=== PATIENT | female | born 1950 | race Caucasian/White ===

== ENCOUNTER 2024-06-18 02:49 | Emergency (ER) | payer MEDICARE ==
[~2024-06-18] VITALS: Ht 162.6 cm; Wt 76.7 kg
[2024-06-18] MEDS ORDERED: GLIPIZIDE ER5 MG PO (03:03)
[2024-06-18] MEDS ORDERED: LOSARTAN POTASS50 MG PO (03:03)
[2024-06-18] MEDS ORDERED: FLUOXETINE HCL20 MG PO (03:04)
[2024-06-18] MEDS ORDERED: CLOPIDOGREL75 MG PO (03:05)
[2024-06-18] MEDS ORDERED: LIPITOR40 MG PO (03:05)
[2024-06-18] MEDS ORDERED: LACTATED RINGER'S 1,000 ML IV ONE (03:15)
[2024-06-18] MEDS ORDERED: DIPHENOXYLATE/ATROPINE 1 EA TAB PO ONE (03:15)
[2024-06-18 03:24] LABS: EOSINOPHILS 3.4 % (0-6); HEMATOCRIT 36.7 % (35.0-50.0); LYMPHOCYTES 35.1 % (24-44); MCH 32.9 (27-36); MCHC 35.3 g/dl (30-36); MCV 93.5 fl (81-99); NEUTROPHILS 50.5 % (39-80); PLATELET COUNT 294 K/uL (140-440); RBC 3.93 M/ul (4.3-5.7); RDW 13.7 (10.5-15.0)
[2024-06-18 03:37] LABS: ALBUMIN 3.8 g/dL (3.4-5.0); ALBUMIN/GLOBULIN RATIO 0.93 (1.1-2.4); ANION GAP 14.4 (7-21); BILIRUBIN, TOTAL 0.6 mg/dL (0.2-1.0); BUN/CREATININE RATIO 19.4 (6.0-28.6); CALCIUM 8.8 mg/dL (8.5-10.1); CREATININE, SERUM 0.67 mg/dL (0.55-1.02); MAGNESIUM 1.9 mg/dL (1.8-2.4); POTASSIUM 3.4 mmol/L (3.5-5.1); PROTEIN, TOTAL 7.9 g/dL (6.4-8.2)
[2024-06-18 03:44] LABS: CORONAVIRUS COVID-19 AG NEGATIVE (NEGATIVE); INFLUENZA A AG NEGATIVE (NEGATIVE); INFLUENZA B AG NEGATIVE (NEGATIVE)
[2024-06-18 04:04] LABS: BILIRUBIN, URINE NEGATIVE (negative); BLOOD/HGB, URINE NEGATIVE (Negative); KETONE, URINE NEGATIVE (Negative); LEUK ESTERASE, URINE NEGATIVE (negative); NITRITE, URINE NEGATIVE (negative)
[2024-06-18] MEDS ORDERED: LOMOTIL TABLET1 EACH PO (04:20)
[2024-06-18] MEDS ORDERED: CHOLESTYRAMINE P4 GM PO (04:20)
[2024-06-18] MEDS ORDERED: LOPERAMIDE HCL 2 MG CAP PO ONE (04:30)
[2024-06-18 04:43] VITALS: BP 190/89
== END 2024-06-18 04:43 | disposition home or self-care (01) ==
LOC: ED 02:49
PROVIDERS: Family Medicine
DX: K52.9 Noninfective gastroenteritis and colitis, unspecified (principal); E11.9 Type 2 diabetes mellitus without complications; I10 Essential (primary) hypertension; E78.00 Pure hypercholesterolemia, unspecified; Z86.73 Personal history of transient ischemic attack (TIA), and cerebral infarction without residual deficits; Z79.84 Long term (current) use of oral hypoglycemic drugs; Z79.01 Long term (current) use of anticoagulants; Z79.899 Other long term (current) drug therapy
CPT/HCPCS: 36415; 74018; 80053; 81003; 83735; 85025; 96360; 99284-25; J7121